=== PATIENT | female | born 1975 | race Caucasian/White ===

== ENCOUNTER → 2022-02-24 16:05 | Outpatient (CLI) | payer SELFPAY ==
--- NOTE | 2022-02-24 16:37 | XR_ITS ---
PROCEDURE INFORMATION: Exam: XR Chest Exam date and time: 02/24/2022 4:37 PM Age: 46 years old Clinical indication: Other: Covid symptoms. Prior surgery; Surgery date: 6+ months; Surgery type: Stent TECHNIQUE: Imaging protocol: XR of the chest. Views: 1 view. COMPARISON: CR (CHEST, CXR AP LANDSCAPE) 03/07/2019 9:44 AM FINDINGS: Lungs: Unremarkable. No consolidation. Pleural spaces: Unremarkable. No pleural effusion. No pneumothorax. Heart/Mediastinum: Unremarkable. No cardiomegaly. Bones/joints: Unremarkable. IMPRESSION: No acute findings.
[2022-02-24 16:48] LABS: Influenza A, PCR Not Detected (NotDetected); Influenza B, PCR Not Detected (NotDetected)
[2022-02-24 17:26] LABS: Coronavirus 19, PCR Detected (NotDetected)
== END ==
PROVIDERS: PCP Nurse Practitioner; Visit Provider Nurse Practitioner
DX: U07.1 COVID-19 (principal)
CPT/HCPCS: 71045; C9803; U0003; U0005

== ENCOUNTER → 2022-04-07 06:58 | Outpatient (CLI) | payer SELFPAY | PROVIDERS: PCP Nurse Practitioner; Visit Provider Nurse Practitioner | DX: N39.0 Urinary tract infection, site not specified (principal); R30.0 Dysuria; B96.29 Other Escherichia coli [E. coli] as the cause of diseases classified elsewhere | CPT/HCPCS: 87086; 87088; 87186 ==

== ENCOUNTER → 2022-06-10 06:13 | Outpatient (CLI) | payer SELFPAY ==
[2022-06-10 18:20] LABS: Adenovirus,PCR Not Detected (NotDetected); Bordetella Pertussis Not Detected (NotDetected); Chlamydophila Pneumoniae, PCR Not Detected (NotDetected); Coronavirus 19, PCR Not Detected (NotDetected); Coronavirus 229E Not Detected (NotDetected); Coronavirus NL63 Not Detected (NotDetected); Coronavirus OC43 Not Detected (NotDetected); Coronovirus HKU1,PCR Not Detected (NotDetected); Human Metapneumovirus Not Detected (NotDetected); Influenza A, PCR Not Detected (NotDetected); Influenza AH1, 2009 Not Detected (NotDetected); Influenza AH1, PCR Not Detected (NotDetected); Influenza AH3,PCR Not Detected (NotDetected); Influenza B, PCR Not Detected (NotDetected); Mycoplasma Pneumoniae, PCR Not Detected (NotDetected); Parainfluenza 1, PCR Not Detected (NotDetected); Parainfluenza 2, PCR Not Detected (NotDetected); Parainfluenza 3, PCR Not Detected (NotDetected); Parainfluenza 4, PCR Not Detected (NotDetected); Respiratory Syncytial Virus Not Detected (NotDetected); Rhinovirus/Enterovirus Not Detected (NotDetected)
[2022-06-10 18:27] LABS: Basophils # 0.1 K/mm3 (0-0.2); Basophils % 1.1 % (0.1-2.0); Eosinophils # 0.2 K/mm3 (0.0-0.4); Eosinophils % 5.4 % (0.1-12.0); Hematocrit 40.8 % (37.0-47.0); Hemoglobin 13.5 g/dL (12.2-16.2); Lymphocytes # 1.3 K/mm3 (0.7-4.5); Lymphocytes % 29.2 % (10-50); Mean Corpuscular HGB Conc 33.1 g/dL (31.8-35.4); Mean Corpuscular Hemoglobin 30.3 pg (27.0-31.2); Mean Corpuscular Volume 91.5 fl (81-99); Mean Platelet Volume 9.4 fl (7.4-10.4); Monocytes # 0.3 K/mm3 (0.1-1.0); Monocytes % 5.7 % (1.7-9.3); Neutrophils # 2.6 K/mm3 (1.8-7.8); Neutrophils % 58.6 % (37.0-80.0); Platelet Count 252 K/mm3 (142-424); Red Blood Count 4.46 M/mm3 (4.20-5.40); Red Cell Distribution Width 14.1 % (11.5-17.5); White Blood Count 4.4 K/mm3 (4.8-10.8)
== END ==
PROVIDERS: PCP Nurse Practitioner; Visit Provider Nurse Practitioner
DX: Z20.822 Contact with and (suspected) exposure to COVID-19 (principal); R07.89 Other chest pain; R06.02 Shortness of breath; R94.31 Abnormal electrocardiogram [ECG] [EKG]; J06.9 Acute upper respiratory infection, unspecified
CPT/HCPCS: 85025; 87581; 87632; 87798; C9803; U0003; U0005

== ENCOUNTER → 2022-06-15 06:42 | Outpatient (CLI) | payer SELFPAY ==
[2022-06-15 19:43] LABS: Basophils # 0.1 K/mm3 (0-0.2); Basophils % 0.8 % (0.1-2.0); Eosinophils % 0.4 % (0.1-12.0); Hematocrit 38.7 % (37.0-47.0); Lymphocytes # 1.5 K/mm3 (0.7-4.5); Lymphocytes % 21.8 % (10-50); Mean Corpuscular HGB Conc 33.6 g/dL (31.8-35.4); Mean Corpuscular Hemoglobin 30.3 pg (27.0-31.2); Mean Platelet Volume 9.6 fl (7.4-10.4); Monocytes # 0.3 K/mm3 (0.1-1.0); Monocytes % 4.8 % (1.7-9.3); Neutrophils % 72.2 % (37.0-80.0); Platelet Count 226 K/mm3 (142-424); Red Cell Distribution Width 14.1 % (11.5-17.5); White Blood Count 6.9 K/mm3 (4.8-10.8)
== END ==
PROVIDERS: PCP Nurse Practitioner; Visit Provider Nurse Practitioner
DX: R06.02 Shortness of breath (principal); J18.9 Pneumonia, unspecified organism
CPT/HCPCS: 85025

== ENCOUNTER → 2022-08-31 10:30 | Outpatient (CLI) | payer BC, SELFPAY ==
[2022-08-31 19:42] LABS: Basophils % 0.6 % (0.1-2.0); Eosinophils # 0.1 K/mm3 (0.0-0.4); Eosinophils % 3.4 % (0.1-12.0); Hematocrit 42.1 % (37.0-47.0); Hemoglobin 13.4 g/dL (12.2-16.2); Lymphocytes # 0.9 K/mm3 (0.7-4.5); Lymphocytes % 23.3 % (10-50); Mean Corpuscular HGB Conc 31.9 g/dL (31.8-35.4); Mean Corpuscular Hemoglobin 29.4 pg (27.0-31.2); Mean Corpuscular Volume 92.2 fl (81-99); Mean Platelet Volume 9.9 fl (7.4-10.4); Monocytes # 0.2 K/mm3 (0.1-1.0); Monocytes % 5.9 % (1.7-9.3); Neutrophils # 2.7 K/mm3 (1.8-7.8); Neutrophils % 66.8 % (37.0-80.0); Platelet Count 256 K/mm3 (142-424); Red Blood Count 4.57 M/mm3 (4.20-5.40); Red Cell Distribution Width 14.2 % (11.5-17.5)
[2022-08-31 19:53] LABS: Alanine Aminotransferase 14 U/L (12-78); Albumin Level 4.3 g/dl (3.5-5.0); Albumin/Globulin Ratio 1.8 (1.1-1.8); Alkaline Phosphatase 62 U/L (38-126); Anion Gap -1.7 mEq/L (5-15); Aspartate Amino Transferase 29 U/L (14-36); Bilirubin,Total 0.4 mg/dl (0.2-1.3); Blood Urea Nitrogen 7 mg/dl (7-17); Calcium 9.2 mg/dl (8.4-10.2); Carbon Dioxide 35 mmol/L (22.0-30.0); Chloride 99 mmol/L (98-107); Estimated Glomerular Filt Rate 67 ml/min (>60); GFR (African American) 81 ML/MIN (>60); Globulin 2.4 g/dL (1.3-3.2); Glucose 84 mg/dl (74-100); Potassium 3.3 mmoL/L (3.5-5.1); Sodium 129 mmol/L (136-145); Total Protein,Serum 6.7 g/dl (6.3-8.2)
[2022-08-31 20:26] LABS: Thyroid Stimulating Hormone 0.62 uIU/mL (0.465-4.68)
[2022-08-31 20:56] LABS: Iron 72 ug/dL (37-170)
== END ==
PROVIDERS: PCP Family Medicine; Visit Provider Family Medicine
DX: J20.9 Acute bronchitis, unspecified (principal); R53.83 Other fatigue; N39.0 Urinary tract infection, site not specified
CPT/HCPCS: 80053; 83540; 84443; 85025; 87086

== ENCOUNTER → 2022-11-06 11:00 | Outpatient (CLI) | payer BC, SELFPAY ==
[2022-11-06 18:08] LABS: Basophils # 0.1 K/mm3 (0-0.2); Basophils % 1.1 % (0.1-2.0); Eosinophils # 0.3 K/mm3 (0.0-0.4); Eosinophils % 5.3 % (0.1-12.0); Hematocrit 40.6 % (37.0-47.0); Hemoglobin 13.1 g/dL (12.2-16.2); Lymphocytes # 1.4 K/mm3 (0.7-4.5); Lymphocytes % 29.4 % (10-50); Mean Corpuscular HGB Conc 32.2 g/dL (31.8-35.4); Mean Corpuscular Hemoglobin 29.8 pg (27.0-31.2); Mean Corpuscular Volume 92.3 fl (81-99); Mean Platelet Volume 9.4 fl (7.4-10.4); Monocytes # 0.3 K/mm3 (0.1-1.0); Monocytes % 5.4 % (1.7-9.3); Neutrophils # 2.8 K/mm3 (1.8-7.8); Neutrophils % 58.8 % (37.0-80.0); Platelet Count 243 K/mm3 (142-424); Red Cell Distribution Width 14.3 % (11.5-17.5); White Blood Count 4.8 K/mm3 (4.8-10.8)
[2022-11-06 18:27] LABS: Alanine Aminotransferase 14 U/L (12-78); Albumin Level 3.8 g/dl (3.5-5.0); Albumin/Globulin Ratio 1.6 (1.1-1.8); Alkaline Phosphatase 56 U/L (38-126); Anion Gap 5.1 mEq/L (5-15); Aspartate Amino Transferase 27 U/L (14-36); Bilirubin,Total 0.4 mg/dl (0.2-1.3); Blood Urea Nitrogen 7 mg/dl (7-17); Calcium 8.2 mg/dl (8.4-10.2); Carbon Dioxide 34 mmol/L (22.0-30.0); Chloride 104 mmol/L (98-107); Estimated Glomerular Filt Rate 67 ml/min (>60); GFR (African American) 81 ML/MIN (>60); Globulin 2.4 g/dL (1.3-3.2); Glucose 91 mg/dl (74-100); Potassium 3.1 mmoL/L (3.5-5.1); Sodium 140 mmol/L (136-145); Total Protein,Serum 6.2 g/dl (6.3-8.2); Uric Acid 4.3 mg/dl (2.5-6.2)
[2022-11-06 18:58] LABS: Thyroid Stimulating Hormone 0.86 uIU/mL (0.465-4.68)
[2022-11-06 19:00] LABS: Erythrocyte Sedimentation Rate 8 mm/hr (0-20)
[2022-11-08 11:08] LABS: RA Latex Turbid. 10.6 IU/mL (<14.0)
[2022-11-13 00:09] LABS: Antinuclear Antibodies, IFA Negative (.)
== END ==
PROVIDERS: PCP Family Medicine; Visit Provider Family Medicine
DX: M06.9 Rheumatoid arthritis, unspecified (principal)
CPT/HCPCS: 80053; 84443; 84550; 85025; 85651; 86038; 86431

== ENCOUNTER → 2022-11-18 23:58 | Outpatient (CLI) | payer BC, SELFPAY | PROVIDERS: PCP Nurse Practitioner; Visit Provider Nurse Practitioner | DX: M54.9 Dorsalgia, unspecified (principal) | CPT/HCPCS: 87086 ==

== ENCOUNTER → 2022-11-25 10:09 | Outpatient (CLI) | payer BC, SELFPAY ==
[2022-11-25 18:58] LABS: Basophils # 0.1 K/mm3 (0-0.2); Basophils % 1.4 % (0.1-2.0); Eosinophils # 0.3 K/mm3 (0.0-0.4); Eosinophils % 4.6 % (0.1-12.0); Hematocrit 48.5 % (37.0-47.0); Hemoglobin 15.6 g/dL (12.2-16.2); Lymphocytes # 1.5 K/mm3 (0.7-4.5); Lymphocytes % 23.4 % (10-50); Mean Corpuscular HGB Conc 32.1 g/dL (31.8-35.4); Mean Corpuscular Volume 90.3 fl (81-99); Mean Platelet Volume 10.1 fl (7.4-10.4); Monocytes # 0.4 K/mm3 (0.1-1.0); Monocytes % 6.1 % (1.7-9.3); Neutrophils # 4.3 K/mm3 (1.8-7.8); Neutrophils % 64.5 % (37.0-80.0); Platelet Count 299 K/mm3 (142-424); Red Blood Count 5.38 M/mm3 (4.20-5.40); Red Cell Distribution Width 13.5 % (11.5-17.5); White Blood Count 6.6 K/mm3 (4.8-10.8)
== END ==
PROVIDERS: PCP Nurse Practitioner; Visit Provider Nurse Practitioner
DX: J06.9 Acute upper respiratory infection, unspecified (principal)
CPT/HCPCS: 85025

== ENCOUNTER → 2023-05-27 23:55 | Outpatient (CLI) | payer BC, SELFPAY ==
[2023-05-27 22:32] LABS: Amphetamine/Metha Screen,Urine Negative ng/ml (<1000); Benzodiazepines Screen,Urine Negative ng/ml (<200)
[2023-05-27 22:33] LABS: Barbiturates Screen,Urine Negative ng/ml (<200)
[2023-05-27 22:34] LABS: Cannabinoid Screen,Urine Negative ng/ml (<50); Methadone Screen,Urine Negative ng/ml (<300)
[2023-05-27 22:35] LABS: Cocaine Screen,Urine Negative ng/ml (<300)
[2023-05-27 22:36] LABS: Opiate Screen,Urine Positive ng/ml (<300); Phencyclidine Screen,Urine Negative ng/ml (<25)
== END ==
PROVIDERS: PCP Family Medicine; Visit Provider Family Medicine
DX: Z79.899 Other long term (current) drug therapy (principal)
CPT/HCPCS: 80305

== ENCOUNTER 2023-10-18 18:21 | Outpatient (CLI) | payer BC, SELFPAY ==
[2023-10-18 23:27] LABS: Amphetamine/Metha Screen,Urine Negative ng/ml (<1000); Barbiturates Screen,Urine Negative ng/ml (<200); Benzodiazepines Screen,Urine Negative ng/ml (<200); Cannabinoid Screen,Urine Negative ng/ml (<50); Cocaine Screen,Urine Negative ng/ml (<300); Methadone Screen,Urine Negative ng/ml (<300); Opiate Screen,Urine Positive ng/ml (<300); Phencyclidine Screen,Urine Negative ng/ml (<25)
== END 2023-10-18 23:59 ==
LOC: LAB.DROPOF 18:21
PROVIDERS: PCP Family Medicine; Visit Provider Family Medicine
DX: Z79.899 Other long term (current) drug therapy (principal)
CPT/HCPCS: 80307

== ENCOUNTER 2024-08-23 09:10 | Outpatient (CLI) | payer BC, SELFPAY ==
[2024-08-23 19:35] LABS: Basophils # 0.1 K/mm3 (0-0.2); Basophils % 1.4 % (0.1-2.0); Eosinophils # 0.1 K/mm3 (0.0-0.4); Eosinophils % 3.3 % (0.1-12.0); Hematocrit 44.2 % (37.0-47.0); Lymphocytes # 0.9 K/mm3 (0.7-4.5); Lymphocytes % 25.1 % (10-50); Mean Corpuscular HGB Conc 31.6 g/dL (31.8-35.4); Mean Corpuscular Volume 91.8 fl (81-99); Mean Platelet Volume 10.3 fl (7.4-10.4); Monocytes # 0.2 K/mm3 (0.1-1.0); Monocytes % 6.4 % (1.7-9.3); Neutrophils # 2.2 K/mm3 (1.8-7.8); Neutrophils % 63.7 % (37.0-80.0); Platelet Count 257 K/mm3 (142-424); Red Blood Count 4.81 M/mm3 (4.20-5.40); Red Cell Distribution Width 14.9 % (11.5-17.5); White Blood Count 3.4 K/mm3 (4.8-10.8)
[2024-08-23 19:47] LABS: Hemoglobin A1C 5.3 % (4.0-6.0)
[2024-08-23 20:23] LABS: 25-OH Vitamin D, Total 61.4 ng/mL (30-100)
== END 2024-08-23 23:59 | disposition home or self-care (01) ==
LOC: LAB.DROPOF 08-25 09:15
PROVIDERS: PCP Family Medicine; Visit Provider Family Medicine
DX: Z01.818 Encounter for other preprocedural examination (principal)
CPT/HCPCS: 82306; 83036; 85025

== ENCOUNTER 2024-12-29 14:48 | Outpatient (CLI) | payer BC, SELFPAY ==
[2024-12-29 16:58] LABS: Coronavirus 19, PCR Not Detected (NotDetected); Human Rhinovirus Not Detected (NotDetected); Influenza A, PCR Not Detected (NotDetected); Influenza B, PCR Not Detected (NotDetected); Respiratory Syncytial Virus Not Detected (NotDetected)
== END 2024-12-29 23:59 | disposition home or self-care (01) ==
LOC: LAB.DROPOF 12-30 11:56
PROVIDERS: PCP Nurse Practitioner Family; Visit Provider Nurse Practitioner Family
DX: R30.0 Dysuria (principal); R35.0 Frequency of micturition; R39.15 Urgency of urination; R10.30 Lower abdominal pain, unspecified; R09.81 Nasal congestion; J02.9 Acute pharyngitis, unspecified; R06.2 Wheezing; R05.9 Cough, unspecified; G43.909 Migraine, unspecified, not intractable, without status migrainosus
CPT/HCPCS: 87086; 87631

== ENCOUNTER 2025-08-06 16:38 | Outpatient (CLI) | payer BC, SELFPAY ==
--- OUTSIDE RECORDS SUMMARY | 2010-04-08 19:00 | XMS_ITS | Continuity of Care Document ---
Author Organization [facility] Address [address] [facility] [address] [place] [address] Phone Care Team Providers Care Sample Maker Name Role Phone Bowers OD, Benjamín Unavailable Unavailable Procedures Procedure Date Contact Lens Hydrophilic, Spherical Medical Tax Contact Lens Check CL Replacement - Vistakon Disp W/BW Soft Tax - Medical Office/outpatient Visit, Est Contact Lens Check Eye Exam, New Patient Refraction Advance Directives Directive Yes / No Effective Date File Name No Information Encounters Encounter Description Practice Location Reason(s) For Visit Diagnoses Date Provider Providers Copied on Encounter [facility], [address] [place] [address] [address], [place], [place], [id number], [place] tel:[phone] [facility] [place] No Information 4-201 0 Bowers OD Benjamín. [address], [address], [place], [address], [place]. tel:[phone] [facility], [address], [place], [place], [id number], [place] tel:[phone] [facility] [place] No Information 0-200 9 Bowers OD Benjamín. [address], [address], [place], [address], [place]. tel:[phone] Office/outpat ient Visit, Est [facility], [address], [place], [place], [id number], [place] tel:[phone] [facility] [place] No Information Oct-1 3-200 9 Krishnasamy David. [facility] [address], [place], [place], [facility], . tel:[phone] [facility], [address], [place], [place], [id number], [place] tel:[phone] [facility] [place] No Information Oct-0 7-200 9 Bowers OD Benjamín. [facility] , [address], [place], [place], [facility], . tel:[phone] [facility], [address], [place], [place], [id number], [place] tel:[phone] SEC [facility] No Information Sep-3 0-200 9 Bowers OD Benjamín. [address] [place] [address] , [address], [place], [place], [facility], . tel:[phone] Family History Family Member Type Diagnosis Age At Onset No Information Payers Payer name Insurance type Covered libertarian ID Authoriza tion(s) No Information Social History Type Description Quantity Date Captured Comments Sex Female Smoking Status No Information Chief Complaint And Reason For Visit No Information Reason For Referral Reason For Referral No Information History Of Present Illness Encounter Date Complaint History Of Prese nt Illness No Information Functional Status Date Functional Assessmen t No Information Instructions Date Instruction Additional Infor mation No Information Assessments Type Assessment Date No Information Patient Care Teams Name Effective Dates (start - stop) Status Members No Information
[2025-08-06 21:59] LABS: Hepatitis C Ab Qual. W/ RFX NEGATIVE (Negative)
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
--- OUTSIDE RECORDS SUMMARY | 2025-08-07 16:40 | XMS_ITS | Clinical Summary ---
Author Organization [facility] Address [address] [place] [address] Phone Care Team Providers Care Extension Course Counselor Name Role Phone Malcolm Calvillo NP Primary Care Provider [phone] Allergies Active Allergy Reactions Criticality Noted Date Comments Ibuprofen Other (See Comments) Low 06/05/2011 Migraine, TOOK MELOXICAM INPATIENT NO PROBLEM Levofloxacin Swelling 04/29/2022 Red, welpy rash, hives Nitrofurantoin Hives 04/29/2022 Nsaids (Non-Steroidal Anti-Inflammatory Drug) Other (See Comments) High 12/15/2022 Massive Migraines Medications aspirin 325 mg Oral Tablet Take 325 mg by mouth daily. Active gabapentin (NEURONTIN) 600 mg Oral Tablet Take 1 Tab by mouth 3 times daily. 30 Tab 9 Active aclidinium bromide (TUDORZA PRESSAIR) 400 mcg/actuation Inhl Aerosol Powdr Breath Activated Inhale 1 Puff into the lungs every 12 hours. 1 Each 05/10/2019 4:13 PM EDT 9 Active albuterol (PROVENTIL HFA;VENTOLIN HFA) 90 mcg/actuation Inhl HFA Aerosol Inhaler Inhale 2 Puffs into the lungs every 6 hours as needed for Wheezing. 8.5 g 05/10/2019 4:13 PM EDT 9 Active nitroGLYCERIN (NITROSTAT) 0.4 mg SL Tablet, Sublingual Place 1 Tab under the tongue every 5 minutes as needed for Chest pain. 30 Tab 05/10/2019 4:13 PM EDT 9 Active potassium chloride 20 mEq Oral Tablet Sustained Release Take 20 mEq by mouth daily (with breakfast). 30 Tablet 1 Active cholecalciferol, vitamin D3, 25 mcg (1,000 unit) Oral Tablet Take 2 Tablets by mouth daily. 1 Active phenazopyridine (PYRIDIUM) 100 mg Oral Tablet Take 1 Tablet by mouth 3 times daily as needed (urinary burning). 20 Tablet 1 3 Active ALBUTEROL, BULK, MISC by Mis.(Non-Drug; Combo Route) route as needed. Nebulizer Active predniSONE (DELTASONE) 10 mg Oral TabletIndication s:DDD (degenerative disc disease), lumbar Take 50mg x 2 days 40mg x 2 days 30mg x 2 days 20mg x 2 days 10mg x 2 days 30 Tablet 3 Active Additional Information Patient not taking.Reason: Therapy Completed, Reported on 01/30/2025 nitroGLYCERIN (NITROSTAT) 0.4 mg SL Tablet, Sublingual Place 1 Tablet under the tongue every 5 minutes as needed for Chest pain. 30 Tablet 3 3 Active isosorbide mononitrate (IMDUR) 30 mg Oral Tablet Sustained Release 24 hr Take 1 Tablet by mouth nightly. 30 Tablet 5 3 Active acetaminophen (TYLENOL) 500 mg Oral TabletIndication s:Nondisplaced fracture of proximal phalanx of right great toe, initial encounter for closed fracture,Peronea l tendonitis, right Take 2 tablets by mouth every 8 hours 60 Tablet 4 Active estradioL (ESTRACE) 0.01 % (0.1 mg/gram) Vagl Cream Apply a toothpaste-size d amount to just inside the vagina nightly for two weeks then 2-3 times a week at night after that 170 Each 2 4 Active trimethoprim (TRIMPEX) 100 mg Oral Tablet Take 1 Tablet by mouth nightly. 90 Tablet 2 4 Active acetaminophen-co deine (TYLENOL #3) 300-30 mg Oral Tablet TAKE 1 TABLET BY MOUTH 2 TIMES A DAY NEEDED FOR HEADACHE 4 Active bumetanide (BUMEX) 1 mg Oral Tablet Take 1 mg by mouth daily as needed. for swelling 4 Active ergocalciferol (DRISDOL) 1,250 mcg (50,000 unit) Oral Capsule 4 Active fluticasone propion-salmeter oL (ADVAIR) 500-50 mcg/dose Inhl Disk with Device 4 Active metFORMIN (GLUCOPHAGE) 500 mg Oral Tablet Take 500 mg by mouth 2 times daily. 4 Active lidocaine (LIDODERM) 5 % Top Adhesive Patch, Medicated Place 1 Patch onto the skin daily. Apply for 12 hours, remove for 12 hours, then apply new patch 30 Patch 5 Active Active Problems Patient Care Coordination No te Formatting of this note migh t be different from the original. [facility] - Rajinder Chen MD Interventional Pain Protocol: NS Procedure 02/13/25, NS Appt 02/14/25 Cesar report completed (EVERY 3 MONTHS) ( 02/14/2025 ) Pharmacy: [facility] [place] [address] [phone] [facility] - [phone] Spine Center additional info (Transportation, WC, Compound, No Show, PPW) Problem Noted Date Diagnosed Date Chondromalacia of right patella 07/10/2024 Abnormal EKG 12/08/2023 Conjunctivitis 12/08/2023 Pneumonia 12/08/2023 Sinus congestion 12/08/2023 Recurrent UTI 12/08/2023 Vomiting 12/08/2023 Weight loss 12/08/2023 Atrophic urethritis 12/08/2023 Chronic constipation 12/08/2023 COPD (chronic obstructive pulmonary disease) Nondisplaced fracture of pro ximal phalanx of right great toe, initial encounter for closed fracture 06/26/2023 URI (upper respiratory infection) 06/26/2023 Syncope, unspecified syncope type 06/25/2023 Right ankle pain 06/10/2023 Pain in both feet 01/13/2023 Peroneal tendonitis, right 01/13/2023 Protruded cervical disc 01/05/2023 Bulging lumbar disc 01/05/2023 Radiculopathy, cervical 01/05/2023 Protruded cervical disc 12/24/2022 DDD (degenerative disc disease), cervical 2022 Sprain of ligaments of cervical spine 12/15/2022 Bulging lumbar disc 12/03/2022 Sciatica 12/03/2022 Sprain of ligaments of lumbar spine 12/03/2022 Pyelonephritis 05/16/2021 Paroxysmal atrial fibrillation 05/16/2021 Acute hypokalemia 05/05/2019 Generalized weakness 05/05/2019 Chronic pain syndrome 05/05/2019 Moderate protein-calorie malnutrition 05/05/2019 Acute chest pain 09/08/2018 Essential hypertension 09/08/2018 Acute stress reaction 04/23/2017 Supraventricular tachycardia 03/26/2017 Presence of other cardiac implants and grafts Transient ischemic attack 01/11/2017 Lupus 08/18/2016 Palpitations 08/07/2016 Shortness of breath 08/07/2016 Fibromyalgia 06/05/2011 Asthma 06/05/2011 IBS (irritable bowel syndrome) 06/05/2011 Resolved Problems Problem Noted Date Diagnosed Date Resolved Date History of lupus 09/08/2018 06/26/2019 Immunizations Immunization Administration Dates Next Due Pneumococcal Polysaccharide 23 Valent 05/08/2019 Tdap 06/12/2020 Surgical History Surgery Date Site/Laterality Comments HERNIA REPAIR 09/27/2006 - 09/26/2007 UMBILICAL ENDOMETRIAL ABLATION DILATION AND CURETTAGE OF UTERUS TUBAL LIGATION CHOLECYSTECTOMY years ago- early FOOT TENDON SURGERY 02/10/2023 Foot/Ankle/Right RIGHT FOOT EXCISION OF HYPERTROPHIC PERONEAL TUBERCLE; Surgeon: Arvin Menon MD; Location: [facility] MA[facility] OR; Service: Orthopedics CYSTOSCOPY 02/24/2024 Bilateral Performed in office by Dr Sandra Fitzpatrick Medical History Medical History Date Comments Lupus Hypertension Bradycardia Fibromyalgia Endometriosis Atrial fibrillation (HCC) History of loop recorder @2014- Inactive since 2016 COPD (chronic obstructive pulmonary disease) (HC C) Arthritis rheumatoid Chronic kidney disease CHF (congestive heart failure) (HCC) @2014 Urinary tract infection Chronic, Last UTI- 01/25/23 TIA (transient ischemic attack) Multilevel degenerative disc disease neck and lower back Family History Medical History Relation Name Comments Heart Failure Father Breast Cancer Mother Ovarian Cancer Sister 1 rar Heart Disease Sister 2 Anesth Problems Neg Hx Relation Name Status Comments Father Alive Mother Sister 1 rar Alive Sister 2 Alive Social History Tobacco Use Types Packs/Day Years Used Date Smoking Tobacco: Never Smokeless Tobacco: Never Tobacco Cessation:Counseling Given: Not Answered Alcohol Use Standard Drinks/Week Comments No 0 (1 standard drink = 0.6 oz pur e alcohol) rarely Sexually Active Control Partners Comments Yes Male Comments No Sex and Gender Information Value Date Recorded Sex Assigned at Not on file Legal Sex Female 10:20 AM EDT Gender Identity Not on file Sexual Orientation Not on file Obstetrics History Para Term AB IAB SAB Ectopic Multiple Livin g Live Births 3 3 3 3 3 Date Outcome GA Total Labor Labor/2nd/3rd Weight Sex Type Anes PTL Amira A1 A5 Name Clin Term Vag-S pont Living Term Vag-S pont Living Term Vag-S pont Living Complications:Placenta Previ a Last Filed Vital Signs Vital Sign Reading Time Taken Comments Blood Pressure 112/70 01/27/2025 12:23 PM EDT Pulse 71 01/30/2025 9:53 AM EDT Temperature 36.8 C (98.3 F) 01/27/2025 12:24 PM EDT Respiratory Rate 18 01/27/2025 12:24 PM EDT Oxygen Saturation 100% 01/30/2025 9:53 AM EDT Inhaled Oxygen Concentration - - Weight 57.4 kg (126 lb 9.6 oz) 01/30/2025 9:53 A M EDT Height 160 cm (5' 3 ) 02/24/2024 9:50 AM EDT Body Mass Index 22.43 02/24/2024 9:50 AM EDT Plan of Treatment Health Maintenance Due Date Last Done Comments Annual Wellness Exam 1976 Hepatitis B Vaccine (1 of 3 - 19+ 3-dose series) 1992 Cervical Cancer Screening 1994 Pap Smear 1994 HPV/Pap Cotest 12/07/2003 Breast Cancer Screening 2013 Cologuard 2018 Colon Cancer Screening 2018 Colonoscopy 2018 FIT 2018 Sigmoidoscopy 2018 Virtual Colonography 2018 Zoster (2 of 2) 09/26/2024 08/01/2024 COVID-19 Vaccine (1 - 2024-2 6 season) 2025 Influenza Vaccine (#1) 2025 , 08/31/2022, 10/27/2019 DTaP/TDaP/Td (2 - Td or Tdap) 06/12/2030 06/12/2020 Pneumococcal Vaccine 50+ Completed 024, 05/08/2019 Meningococcal B Vaccine Aged Out No karlie onger eligible based on patient's age to complete this topic Goals Goal Patient Goal Type Associated Problems Recent Progress Patient-Stated? Author Blood Pressure < 140/90 Blood Pressure 112/70(2024 12:23 PM EDT) Ghada Muñiz LPN Maintain a healthy diet, exercise regularly and maintain an ideal body weight General No Ghada Levine LPN Medical Devices Implanted Type Area Music Grapher Device Identifier Shelf Expiration Date Model / Serial / Lot Hernia Mesh Abdomen Loop Recorder-Inactiv e Insurance EDDIE O [address] [place] [id number] EDDIE PPO [employer] PPO Member Subscriber Plan / Payer (Ef fective 2022-Present) Name:Marielle Kan Karlie Relation to Subscriber:Self Name:Marielle Kan Payer ID:[id number] (NAIC) Type:Not on file Address: [address] [place] [id number] [place] [address] [employer] PPO GENERIC WORKERS' COMP Advance Directives For more information, please contact: [phone] * Full Code (Latest Code Status on File) Date Activated Date Inactivated Comments 06/26/2023 2:09 AM 06/27/2023 5:12 PM * Full Code Date Activated Date Inactivated Comments 05/16/2021 3:00 AM 05/17/2021 9:23 PM * Full Code Date Activated Date Inactivated Comments 05/05/2019 7:44 PM 05/09/2019 11:23 PM * Full Code Date Activated Date Inactivated Comments 09/09/2018 9:03 AM 09/10/2018 4:16 PM Care Teams Extension Course Counselor Relationship Specialty Start Date End Date Malcolm Calvillo NP PCP - General 01/27/25
[2025-08-08 08:34] LABS: Hepatitis B Surface Antigen Negative (Negative)
== END 2025-08-06 23:59 | disposition home or self-care (01) ==
LOC: LAB.DROPOF 08-07 16:38
PROVIDERS: PCP Family Medicine; Visit Provider Family Medicine
DX: N39.0 Urinary tract infection, site not specified (principal); R53.83 Other fatigue; Z11.59 Encounter for screening for other viral diseases
CPT/HCPCS: 86803; 87086; 87340; 87389